=== PATIENT | female | born 1930 | race Caucasian/White ===

== ENCOUNTER 2017-02-03 14:52 | Inpatient (IN) | payer OTHER, MEDICARE ==
[2017-02-03] MEDS ORDERED: CLON0.3P TD (16:07)
[2017-02-03] MEDS ORDERED: ATOR40TA PO (16:07)
[2017-02-03] MEDS ORDERED: ACET-868 PO (16:07)
[2017-02-03] MEDS ORDERED: HYDR-4076 PO (16:07)
[2017-02-03] MEDS ORDERED: HYDR-552 PO (16:07)
[2017-02-03] MEDS ORDERED: HYDR-3026 PO (16:07)
[2017-02-03] MEDS ORDERED: SEVE0.8P PO (16:07)
[2017-02-03] MEDS ORDERED: DIPH25CA83 PO (16:07)
[2017-02-03] MEDS ORDERED: FOLI1TAB16 PO (16:07)
[2017-02-03] MEDS ORDERED: DOCU-25 PO (16:07)
[2017-02-03] MEDS ORDERED: FOLI0.8T23 PO (16:07)
[2017-02-03] MEDS ORDERED: NIFE60TA69 PO (16:07)
[2017-02-03] MEDS ORDERED: CARV12.52 PO (16:07)
[2017-02-03] MEDS ORDERED: AMIN30LI4 PO (16:07)
[2017-02-03] MEDS ORDERED: PANT40TA2 PO (16:07)
[2017-02-03] MEDS ORDERED: ASPI81TA2 PO (16:07)
[2017-02-03] MEDS ORDERED: ONDA4TAB5 PO (16:30)
[2017-02-03] MEDS ORDERED: CINA30TA PO (16:30)
[2017-02-03] MEDS ORDERED: CHOL400T11 PO (16:30)
[2017-02-03] MEDS ORDERED: CLONIDINE HCL 0.1 MG TABLET PO ONE (16:30)
[2017-02-03] MEDS ORDERED: CALC0.258 PO (16:30)
[2017-02-03] MEDS ORDERED: SENN8.6T6 PO (16:30)
[2017-02-03] MEDS ORDERED: ASPIRIN 81 MG TAB.CHEW PO ONE (16:30)
[2017-02-03] MEDS ORDERED: ASPIRIN 81 MG TAB.CHEW ONE (16:31)
[2017-02-03] MEDS ORDERED: CLONIDINE HCL 0.1 MG TABLET ONE (16:32)
[2017-02-03] MEDS ORDERED: CARVEDILOL 12.5 MG TABLET PO SCH (17:00)
[2017-02-03] MEDS ORDERED: Z GUARD REMEDY 2 OZ OINT TP PRN (17:00)
[2017-02-03] MEDS ORDERED: CLONIDINE HCL 0.3 MG/24H PTWK 1 EA PATCH TD SCH (17:00)
[2017-02-03] MEDS ORDERED: ONDANSETRON HCL/PF 4 MG/2 ML VIAL IVP PRN (17:00)
[2017-02-03] MEDS ORDERED: MAG HYDROX/AL HYDROX/SIMETH 30 ML UDC PO PRN (17:00)
[2017-02-03] MEDS ORDERED: ACETAMINOPHEN 325 MG TABLET PO PRN ×2 (17:00)
[2017-02-03] MEDS ORDERED: HYDROCODONE/APAP 5/325MG 1 EACH TABLET PO PRN ×2 (17:00)
[2017-02-03] MEDS ORDERED: diphenhydrAMINE HCL 25 MG CAPSULE PO PRN (17:00)
[2017-02-03] MEDS ORDERED: MAGNESIUM HYDROXIDE 30 ML UDC PO PRN (17:00)
[2017-02-03] MEDS ORDERED: hydrALAZINE HCL 25 MG TABLET PO SCH (17:00)
[2017-02-03] MEDS ORDERED: Medication Not On Formulary EA (Ondansetron Hcl (Zofran) 4 MG) PO PRN (17:00)
[2017-02-03] MEDS: BLOOD SUGAR DIAGNOSTIC 1 EACH STRIP IN SCH ×2 (17:37→22:08)
[2017-02-03] MEDS: DOCUSATE SODIUM 100 MG CAPSULE PO SCH (17:51)
[2017-02-03] MEDS: PROSOURCE / PROSTAT (PYXIS) 30 ML UDC PO SCH (17:53)
[2017-02-03] MEDS: SEVELAMER CARBONATE 0.8 GM POWD.PACK PO SCH (17:53)
[2017-02-03] MEDS: NIFEdipine XL 60 MG TAB PO SCH (17:56)
[2017-02-03] MEDS ORDERED: BLOOD SUGAR DIAGNOSTIC 1 EACH STRIP IN SCH (18:00)
[2017-02-03] MEDS ORDERED: hydrOXYzine PAMOATE 25 MG CAPSULE PO PRN (18:00)
[2017-02-03] MEDS ORDERED: ATORVASTATIN 40 MG TABLET PO SCH (22:00)
[2017-02-04] MEDS: BLOOD SUGAR DIAGNOSTIC 1 EACH STRIP IN SCH ×2 (05:41→12:25)
[2017-02-04] MEDS ORDERED: PANTOPRAZOLE 40 MG TABLET.DR PO SCH ×2 (07:30)
[2017-02-04] MEDS: SEVELAMER CARBONATE 0.8 GM POWD.PACK PO SCH (08:00)
[2017-02-04] MEDS: PROSOURCE / PROSTAT (PYXIS) 30 ML UDC PO SCH (09:00)
[2017-02-04] MEDS ORDERED: hydrALAZINE HCL 25 MG TABLET PO SCH (09:00)
[2017-02-04] MEDS ORDERED: CHOLECALCIFEROL (VITAMIN D 3) 400 UNIT TABLET PO SCH (09:00)
[2017-02-04] MEDS ORDERED: VIT B CMPLX 3/FA/VIT C/BIOTIN 1 TAB TABLET PO SCH (09:00)
[2017-02-04] MEDS: NIFEdipine XL 60 MG TAB PO SCH (09:00)
[2017-02-04] MEDS ORDERED: FOLIC ACID 1 MG TABLET PO SCH (09:00)
[2017-02-04] MEDS: DOCUSATE SODIUM 100 MG CAPSULE PO SCH (09:00)
[2017-02-04] MEDS ORDERED: CALCITRIOL 0.25 MCG CAPSULE PO SCH (09:00)
[2017-02-04] MEDS ORDERED: CARVEDILOL 12.5 MG TABLET PO SCH (09:00)
[2017-02-04] MEDS ORDERED: SENNOSIDES 8.6 MG TABLET PO SCH (09:00)
[2017-02-04] MEDS ORDERED: ASPIRIN 81 MG TAB.CHEW PO SCH (09:00)
[2017-02-04] MEDS ORDERED: CINACALCET HCL 30 MG TABLET PO SCH (09:00)
== END 2017-02-04 13:23 | DRG 470 ==
DX: I12.0 Hypertensive chronic kidney disease with stage 5 chronic kidney disease or end stage renal disease (principal); I21.4 Non-ST elevation (NSTEMI) myocardial infarction; G93.41 Metabolic encephalopathy; E44.0 Moderate protein-calorie malnutrition; D69.6 Thrombocytopenia, unspecified; N18.6 End stage renal disease; E83.52 Hypercalcemia; F01.50 Vascular dementia, unspecified severity, without behavioral disturbance, psychotic disturbance, mood disturbance, and anxiety; D63.8 Anemia in other chronic diseases classified elsewhere; Z99.2 Dependence on renal dialysis; I25.10 Atherosclerotic heart disease of native coronary artery without angina pectoris; E78.5 Hyperlipidemia, unspecified; G89.29 Other chronic pain; I70.0 Atherosclerosis of aorta; K21.9 Gastro-esophageal reflux disease without esophagitis; M19.90 Unspecified osteoarthritis, unspecified site; Z66 Do not resuscitate; Z79.82 Long term (current) use of aspirin; Z79.899 Other long term (current) drug therapy; S30.810A Abrasion of lower back and pelvis, initial encounter; S70.312A Abrasion, left thigh, initial encounter; Y33.XXXA Other specified events, undetermined intent, initial encounter; Y93.9 Activity, unspecified; Y92.129 Unspecified place in nursing home as the place of occurrence of the external cause